=== PATIENT | male | born 1990 | race Caucasian/White ===

== ENCOUNTER 2019-01-28 14:19 | Emergency (ER) | payer OTHER, SELFPAY ==
[2019-01-28 14:22] VITALS: BP 137/81; PULSE 97; RESP 18; TEMP 36.7; O2SAT 100
--- NOTE | 2019-01-28 14:48 | ED.GENADUL_ITS ---
Discharge Plan Disposition Patient Disposition: HOME Discharge Details Chief Complaint: GenMedical Clinical Impression: Tick bite, Erythema migrans (Lyme disease) Primary Care Provider: Natividad Mercado ED Provider: Bruce Renae Home Meds and New Rx's Prescriptions: New doxycycline hyclate 100 mg tablet 100 mg PO BID Qty: 41 RF: 0 Discharge Instructions Instructions: Lyme Disease (ED), Tick Bite (ED) Additional Instructions: Please take full course of antibiotic as prescribed. Your initial dose was given today in the emergency department. Your next dose is this evening. Please contact occupational medicine to arrange follow-up. Return to the ER for any worsening or new concerning symptoms. Referrals: Occupational Medicine [Outside] Kimber Brady [NURSE PRACTITIONER] - Medical Decision Making 28-year-old male here 1 week after suspected tick bite left proximal lower leg. Unclear as to how long tick was attached. Otherwise well-appearing. Current rash does not appear consistent with erythema migrans but his description of rash last night does seem concerning. We discussed risks and benefits of antibiotic treatment and patient consents to a course of doxycycline. Discussed tick bite prevention. Usual and customary discharge instructions we provided. HPI General Mode of arrival: ambulatory . Date/Time Provider Initiated Documentation: 01/28/19 14:30 . Limitations to Documentation: no limitations . Information obtained by: patient . HPI Narrative: 28-year-old male presents with chief caput of tick bite. Patient notes that he was bit by tick approximately 1 week ago. The tick was not intact when he found it. Unsure as to how long it was attached to he notes that he removed some of the exoskeleton that was embedded in him. Wound seem to be healing until yesterday he noted a red rash. Rash was circular around the wound with bull's-eye appearance. This has since improved and now has mild redness surrounding it. No associated fever. No joint aches. Related Data Home Medications Medication Instructions Recorded Confirmed doxycycline hyclate 100 mg PO BID #41 tab 01/28/19 Previous Rx's Medication Instructions Recorded doxycycline hyclate 100 mg PO BID #41 tab 01/28/19 Allergies Allergy/AdvReac Type Severity Reaction Status Date / Time No Known Allergies Allergy Unverified 01/28/19 14:25 General Stated Complaint: GenMedical SHAISTA: 5 Review of Systems Constitutional Denies fever(s) Integumentary/Breasts Reports as per HPI PFSH Family History Mother No problems noted. Father No problems noted. Sister No problems noted. Grandfather Neoplasm Grandfather Brain bleed Grandmother Asthma Grandmother No problems noted. Social History Smoking/Tobacco Use Status: Never Alcohol Intake: never Drug use: Never Do you feel safe at home: Yes Do you feel safe in your relationship?: Yes Exam Const General: cooperative and healthy appearing Skin Lesions: lesion noted (3 mm shallow tight wound ulcer left upper calf) Rashes: rashes noted (Mild localized erythema surrounding bite wound) Extrem General: other (no joint swelling) Course Vital Signs Temperature 36.7 C 01/28/19 14:22 Pulse 97 H 01/28/19 14:22 Respiratory Rate 18 01/28/19 14:22 Blood Pressure 137/81 01/28/19 14:22 Pulse Oximetry 100 01/28/19 14:22 Temperature 36.7 C 01/28/19 14:22 Temperature Source Skin 01/28/19 14:22 Pulse 97 H 01/28/19 14:22 Respiratory Rate 18 01/28/19 14:22 Respiratory Effort 01/28/19 14:27 Respiratory Depth Normal 01/28/19 14:27 Respiratory Pattern Normal 01/28/19 14:27 Blood Pressure 137/81 01/28/19 14:22 Pulse Oximetry 100 01/28/19 14:22 Pain Level 0 01/28/19 14:22
[2019-01-28] MEDS: Doxycycline Hyclate 100 MG CAP PO (15:04)
== END 2019-01-28 15:00 | disposition home or self-care (01) ==
PROVIDERS: Emergency Provider Student in an Organized Health Care Education/Training Program
DX: S80.862A Insect bite (nonvenomous), left lower leg, initial encounter (principal); W57.XXXA Bitten or stung by nonvenomous insect and other nonvenomous arthropods, initial encounter; A69.20 Lyme disease, unspecified
CPT/HCPCS: 99283

== ENCOUNTER 2020-08-28 17:15 | Emergency (ER) | payer MEDICAID, SELFPAY ==
[2020-08-28] VITALS (31 sets, daily range): BP systolic 111–140; BP diastolic 64–87; PULSE 92–119; RESP 9–25; TEMP 36.4; O2SAT 96–100
--- NOTE | 2020-08-28 17:15 | DI.RAD_ITS ---
EXAM: XR PORTABLE CHEST AP CLINICAL HISTORY: s/p OD, s/p bystander compressions TECHNIQUE: 2D digital imaging was performed. COMPARISON: CR PORTABLE CHEST ONE VIEW from 08/25/2016 FINDINGS: MEDIASTINUM: Normal. HEART: Normal. PULMONARY VASCULATURE: Normal. LUNGS: Clear. PLEURAL SPACE: No pleural effusion or pneumothorax. BONE:There is a reverse S-type thoracolumbar scoliosis. OTHER FINDINGS:Normal. IMPRESSION: No acute pulmonary findings. DATA REPOSITORY: RADIATION DOSE DELIVERED:
--- NOTE | 2020-08-28 17:15 | RT.EKG_ITS ---
APPROVED REPORT Exam: Resting ECG Patient Location: E HR:114 bpm ECG Measurements Heart Rate 114 AXIS ME 177 P 58 QRSd 102 QRS 67 QT 325 T 40 QTc 447 Conclusion Sinus tachycardia...rate> 99
--- NOTE | 2020-08-28 17:28 | ED.GENADUL_ITS ---
Discharge Plan Disposition Patient Disposition: HOME Condition: Improving Discharge Details Clinical Impression: Opiate or related narcotic overdose Primary Care Provider: Natividad Mercado ED Provider: Stew Nicole Discharge Instructions Instructions: Adult Overdose (ED) Additional Instructions: You had an overdose that required reversal with Narcan prehospital to prevent you from dying. Return to the ER for any acute concerns. Please do not use opiates or other illicitly obtained street drugs. Medical Decision Making 30-year-old male states to me that he tried snorting heroin for the first time today and remembers the inhalation. Family members report that he became unresponsive and then required bystander CPR when they called EMS. Police arrived and then EMS and the patient was given Narcan with revival. He was not reported to have turned blue around the lips. He states to me he feels nauseated. He arrives slightly tachycardic with a normal blood pressure and oxygenation. He is placed on a property assessment monitor, screening EKG obtained and he is referred for x-ray given that there was a report of bystander CPR. Chest x-ray is unremarkable &notes no acute findings. Patient was interviewed by the on-call executive business coach. He was observed, monitored for 2 hours and remained improved and without complaint. Pulse improved to 90-100. Patient requested discharge and declined further care. He was admonished not to utilize street drugs. He was dispensed Narcan as a precaution prior to discharge. HPI General Mode of arrival: EMS . Date/Time Provider Initiated Documentation: 08/28/20 17:26 . Limitations to Documentation: no limitations . Information obtained by: patient and EMS . History of Present Illness 30 year old M presents to the emergency department with the chief complaint of Status post overdose from inhaled heroin, feels nauseated, Quality is described as constant, and is localized to the abdomen. Patient reports no radiation. Patient started experiencing this minute(s) and it has been constant. No relieving factors improve symptom(s), No exacerbating factors reported . Patient notes denies chest pain, fever/chills and shortness of breath. Patient did receive the following treatments prior to arrival, other (Given Narcan by police and EMS) Related Data Allergies Allergy/AdvReac Type Severity Reaction Status Date / Time No Known Allergies Allergy Unverified 08/28/20 17:34 General Stated Complaint: OD/Poison SHAISTA: 2 Review of Systems Narrative: Denies chest pain or shortness of breath. Feels nauseated. Recently well. 8 systems reviewed and otherwise negative. [facility] Family History Mother No problems noted. Father No problems noted. Sister No problems noted. Grandfather Neoplasm COLON Grandfather Brain bleed Grandmother Asthma Grandmother No problems noted. Social History Smoking/Tobacco Use Status: Never Smoking risk assessment performed?: Yes Alcohol Intake: never Drug use: Occasionally Substance use type: marijuana Do you feel safe at home: Yes Do you feel safe in your relationship?: Yes Exam Narrative Exam Narrative: GEN: awake, alert, oriented 3. Pleasant, well groomed, interactive. HEAD: Normocephalic, atraumatic ENT: Mucous membranes moist, oropharynx unremarkable, External ear exam unremarkable EYES: PERRL, EOMI NECK: Full ROM, no CECE, no menigismus CHEST/RESP: Nontender, clear to auscultation bilateral, no wheeze/rhonchi/rales CARDIOVASCULAR: Regular and tachycardic, no murmur, rub hilda. 2+ Rad pulse bilateral ABDOMEN: Soft, nontender, no mass. +Bowel sounds EXT: Full ROM, no edema, no rash Neuro: Grossly normal neurologic exam, conversant, interactive. Psych: Speech fluent, thoughts congruent, affect normal Course Vital Signs Vital signs: Vital Signs Pulse 113 H 08/28/20 17:17 Respiratory Rate 21 08/28/20 17:17 Blood Pressure 140/87 08/28/20 17:17 Pulse Oximetry 100 08/28/20 17:17 Pulse 113 H 08/28/20 17:17 Respiratory Rate 21 08/28/20 17:17 Blood Pressure 140/87 08/28/20 17:17 Blood Pressure Position Sitting 08/28/20 17:17 Pulse Oximetry 100 08/28/20 17:17 Oxygen Delivery Method Room Air 08/28/20 17:17 Oxygen Flow Rate 0 08/28/20 17:17
[2020-08-28] MEDS: Ondansetron 4 MG/2 ML VIAL IVP (17:33)
[2020-08-28] MEDS: Normal Saline 1,000 ML 1000 ML IV (17:33)
--- NOTE | 2020-08-28 18:04 | DI.VRAD_ITS ---
PROCEDURE INFORMATION: Exam: XR Chest, 1 View Exam date and time: 08/28/2020 5:55 PM Age: 30 years old Clinical indication: Other: S/P od, S/P bystander compressions TECHNIQUE: Imaging protocol: XR of the chest Views: 1 view. COMPARISON: CR PORTABLE CHEST ONE VIEW 08/25/2016 6:57 AM FINDINGS: Lungs: Unremarkable. No consolidation. Pleural space: Unremarkable. No pleural effusion. No pneumothorax. Heart/Mediastinum: Unremarkable. No cardiomegaly. Bones/joints: Unremarkable. IMPRESSION: No acute findings. Dictated and Authenticated by: Ariadne Mckinnon MD. Ordering:SANDY Mathias MD
== END 2020-08-28 20:00 | disposition home or self-care (01) ==
PROVIDERS: Emergency Provider Emergency Medicine
DX: T40.1X1A Poisoning by heroin, accidental (unintentional), initial encounter (principal); F11.10 Opioid abuse, uncomplicated; R11.0 Nausea
CPT/HCPCS: 36415; 93005; 96361; 96374; 99285; 71045; 93010; 99284; J2405

== ENCOUNTER 2022-05-10 18:58 | Outpatient (REF) | payer MEDICAID, SELFPAY ==
[2022-05-11 09:45] LABS: HIV-1/2 Ag & Ab Screen Negative (Negative)
[2022-05-11 10:01] LABS: Hepatitis C Ab w Rflx HCV PCR Negative (Negative)
== END 2022-05-10 18:59 | disposition home or self-care (01) ==
LOC: NCHCN 18:58
PROVIDERS: Visit Provider Physician Assistant
DX: Z11.4 Encounter for screening for human immunodeficiency virus [HIV] (principal); Z11.59 Encounter for screening for other viral diseases
CPT/HCPCS: 86803; 87389